=== PATIENT | female | born 1985 | race Caucasian/White ===

== ENCOUNTER 2017-05-01 18:16 | Emergency (ER) | payer OTHER ==
[2017-05-01 18:20] VITALS: BP 140/82; PULSE 65; RESP 20; TEMP 98.3
--- NOTE | 2017-05-01 19:00 | ED ---
Skin/Abscess/FB HPI - General Chief complaint: Skin/Abscess/Foreign Body Stated complaint: RASH, FEVER Time Seen by Provider: 05/01/17 18:51 Source: patient, RN notes reviewed Mode of arrival: ambulatory Limitations: no limitations - History of Present Illness Initial comments: Is a 31-year-old female presents emergency Department chief complaint rash. She states has been present for over one week. She states it slightly itchy in nature she's been trying Claritin and Benadryl with to help because it starts itching. Patient states the rash is not spreading and it's not improving at this time. Denies any recent sore throat or any known illnesses. Patient thought she felt warm today May had a fever no recorded temperature. Patient states she did use a new laundry detergent in the past which she thought it was but it's not going away. She's had problems with laundry soaps or past. She does have drug ALLERGY to sulfa. Patient offers no other associated symptoms. Denies difficulty breathing or difficulty swallowing - Related Data Previous Rx's Medication Instructions Recorded Albuterol Inhaler [Ventolin Hfa 1 - 2 puff INHALATION Q6HR PRN #2 11/06/15 Inhaler] puff Levofloxacin [Levaquin] 750 mg PO DAILY #10 tab 11/06/15 Allergies Allergy/AdvReac Type Severity Reaction Status Date / Time Sulfa (Sulfonamide Allergy Rash/Hives Verified 05/01/17 18:20 Antibiotics) Review of Systems ROS Statement: Those systems with pertinent positive or pertinent negative responses have been documented in the HPI. ROS Other: All systems not noted in ROS Statement are negative. Past Medical History Past Medical History: No Reported History History of Any Multi-Drug Resistant Organisms: None Reported Past Surgical History: No Surgical Hx Reported Past Psychological History: No Psychological Hx Reported Smoking Status: Current every day smoker Past Alcohol Use History: Occasional Past Drug Use History: None Reported General Exam Limitations: no limitations General appearance: alert, in no apparent distress Head exam: Present: atraumatic, normocephalic, normal inspection Eye exam: Present: normal appearance, PERRL, EOMI. Absent: scleral icterus, conjunctival injection, periorbital swelling ENT exam: Present: normal exam, normal oropharynx, mucous membranes moist, TM's normal bilaterally, normal external ear exam Neck exam: Present: normal inspection, full ROM. Absent: tenderness, meningismus, lymphadenopathy Respiratory exam: Present: normal lung sounds bilaterally. Absent: respiratory distress, wheezes, rales, rhonchi, stridor Cardiovascular Exam: Present: regular rate, normal rhythm, normal heart sounds. Absent: systolic murmur, diastolic murmur, rubs, gallop, clicks Skin exam: Present: warm, dry, intact, normal color, rash (Rash noted on the torso which is slightly scaly in nature, salmon-colored in various in size) Course Vital Signs 05/01/17 18:18 Temperature 98.3 F Pulse Rate 65 Respiratory 20 Rate Blood Pressure 140/82 O2 Sat by Pulse 99 Oximetry Medical Decision Making - Medical Decision Making 31-year-old female presented emergency from for rash. Patient has pityrisasis rosea. We did discuss that this is treated with antihistamines and a last several weeks and she should follow-up with her primary care physician for recheck return parameters were discussed. Disposition Clinical Impression: Pityriasis rosea Disposition: HOME SELF-CARE Condition: Stable Instructions: Pityriasis rosea (ED) Additional Instructions: Please return to the Emergency Department if symptoms worsen or any other concerns. Referrals: Ivan Chowdhury MD [Primary Care Provider] - 1-2 days Time of Disposition: 19:00
== END 2017-05-01 19:08 | disposition home or self-care (01) ==
LOC: EC 18:16
DX: L42 Pityriasis rosea (principal); F17.200 Nicotine dependence, unspecified, uncomplicated; Z88.2 Allergy status to sulfonamides
CPT/HCPCS: 99283

== ENCOUNTER 2018-01-22 10:46 | Emergency (ER) | payer OTHER ==
[2018-01-22 10:51] VITALS: TEMP 98
--- NOTE | 2018-01-22 11:11 | ED ---
General Adult HPI - General Chief complaint: Chest Pain Stated complaint: chest pain Source: patient Mode of arrival: ambulatory Limitations: no limitations - History of Present Illness Initial comments: Dictation was produced using [employer] dictation software. please excuse any grammatical, word or spelling errors. Chief Complaint: 32-year-old female with past medical history of pulmonary embolus presents with pleuritic chest pain. History of Present Illness: Since yesterday she has been experiencing pleuritic chest pain. Patient states she had a blood clot in the past. She completed anticoagulation therapy. Patient states that she does not know where the blood clot came from. She says she is not sure if she had a deep venous thrombosis. Patient denies any leg pain or leg swelling. Patient states her pain is to her right anterior chest worse with deep inspiration. She states the sharp in nature. Patient is complaining of some shortness of breath. The ROS documented in this emergency department record has been reviewed and confirmed by me. Those systems with pertinent positive or negative responses have been documented in the HPI. All other systems are other negative and/or noncontributory. - Related Data Home Medications Medication Instructions Recorded Confirmed diphenhydrAMINE HCL [Benadryl] 50 mg PO ONCE PRN 05/01/17 05/01/17 Allergies Allergy/AdvReac Type Severity Reaction Status Date / Time Sulfa (Sulfonamide Allergy Rash/Hives Verified 05/01/17 19:03 Antibiotics) Review of Systems ROS Statement: Those systems with pertinent positive or pertinent negative responses have been documented in the HPI. ROS Other: All systems not noted in ROS Statement are negative. Past Medical History Past Medical History: No Reported History History of Any Multi-Drug Resistant Organisms: None Reported Past Surgical History: No Surgical Hx Reported Past Psychological History: No Psychological Hx Reported Smoking Status: Current every day smoker Past Alcohol Use History: Occasional Past Drug Use History: None Reported General Exam - General Exam Comments Initial Comments: PHYSICAL EXAM: General Impression: Alert and oriented x3, not in acute distress HEENT: Normocephalic atraumatic, extra-ocular movements intact, pupils equal and reactive to light bilaterally, mucous membranes moist. Cardiovascular: Heart regular rate and rhythm, S1&S2 audible, no murmurs, rubs or gallops Chest: Lungs clear to auscultation bilaterally, no rhonchi, no wheeze, no rales Abdomen: Bowel sounds present, abdomen soft, non-tender, non-distended, no organomegaly Musculoskeletal: Pulses present and equal in all extremities, left lower extremity slightly larger than right lower extremity in girth Motor: Power 5/5 bilaterally, no focal deficits noted Neurological: CN II-XII grossly intact, no focal motor or sensory deficits noted Skin: Intact with no visualized rashes Psych: Normal affect and mood Limitations: no limitations Course Vital Signs 01/22/18 01/22/18 01/22/18 10:49 11:30 12:00 Temperature 98 F Pulse Rate 71 71 58 L Respiratory 18 17 18 Rate Blood Pressure 129/69 129/82 120/77 O2 Sat by Pulse 99 99 97 Oximetry 01/22/18 01/22/18 12:30 13:00 Temperature Pulse Rate 57 L 54 L Respiratory 17 16 Rate Blood Pressure 121/69 120/71 O2 Sat by Pulse 97 97 Oximetry Medical Decision Making - Medical Decision Making ED course: 32-year-old female past medical history of blood clots presents with pleuritic chest pain and shortness of breath 2 days. Vital signs upon arrival are within acceptable limits. Given that patient has history of blood clots and clinical presentation is concerning for pulmonary embolus plan is to work patient with blood work and d-dimer. Patient is not tachycardic and not hypoxic. There is low to moderate suspicion of blood clot at this time.Laboratory evaluation obtained. CBC, metabolic panel is unremarkable. Cardiac enzymes are negative. D-dimer is slightly elevated to 0.56. Coag panel is negative. X-ray shows no acute processes. CT angios obtained showing no signs to suggest pulmonary embolus or any other pulmonary process. Patient be discharged. Patient's symptoms likely secondary to muscular skeletal strain. Patient be discharged. Told to follow-up with primary care physician. EKG interpretation: Ventricular rate 59, sinus bradycardia,. Interval 132, care is 86, QTC 43. No ID prolongation, no QTC prolongation, no ST or T-wave changes noted. Overall, this EKG is unremarkable - Lab Data Result diagrams: 01/22/18 11:30 01/22/18 11:30 Lab Results 01/22/18 01/22/18 01/22/18 Range/Units 11:30 11:30 11:30 WBC 5.7 (3.8-10.6) k/uL RBC 4.17 (3.80-5.40) m/uL Hgb 13.0 (11.4-16.0) gm/dL Hct 38.1 (34.0-46.0) % MCV 91.3 (80.0-100.0) fL MCH 31.1 (25.0-35.0) pg MCHC 34.0 (31.0-37.0) g/dL RDW 12.6 (11.5-15.5) % Plt Count 154 (150-450) k/uL Neutrophils % 62 % Lymphocytes % 27 % Monocytes % 6 % Eosinophils % 3 % Basophils % 1 % Neutrophils # 3.5 (1.3-7.7) k/uL Lymphocytes # 1.5 (1.0-4.8) k/uL Monocytes # 0.3 (0-1.0) k/uL Eosinophils # 0.2 (0-0.7) k/uL Basophils # 0.0 (0-0.2) k/uL PT (9.0-12.0) sec INR (<1.2) APTT (22.0-30.0) sec D-Dimer (<0.60) mg/L FEU Sodium 141 (137-145) mmol/L Potassium 4.3 (3.5-5.1) mmol/L Chloride 110 H (98-107) mmol/L Carbon Dioxide 24 (22-30) mmol/L Anion Gap 7 mmol/L BUN 10 (7-17) mg/dL Creatinine 0.67 (0.52-1.04) mg/dL Est GFR (CKD-EPI)AfAm >90 (>60 ml/min/1.73 sqM) Est GFR (CKD-EPI)NonAf >90 (>60 ml/min/1.73 sqM) Glucose 92 (74-99) mg/dL Calcium 9.6 (8.4-10.2) mg/dL Magnesium 2.0 (1.6-2.3) mg/dL Total Bilirubin 0.3 (0.2-1.3) mg/dL AST 29 (14-36) U/L ALT 45 (9-52) U/L Alkaline Phosphatase 44 (38-126) U/L Total Creatine Kinase 74 (30-135) U/L CK-MB (CK-2) 0.4 (0.0-2.4) ng/mL CK-MB (CK-2) Rel Index 0.5 Troponin I <0.012 (0.000-0.034) ng/mL Total Protein 6.8 (6.3-8.2) g/dL Albumin 4.0 (3.5-5.0) g/dL 01/22/ Range/Units 11:30 WBC (3.8-10.6) k/uL RBC (3.80-5.40) m/uL Hgb (11.4-16.0) gm/dL Hct (34.0-46.0) % MCV (80.0-100.0) fL MCH (25.0-35.0) pg MCHC (31.0-37.0) g/dL RDW (11.5-15.5) % Plt Count (150-450) k/uL Neutrophils % % Lymphocytes % % Monocytes % % Eosinophils % % Basophils % % Neutrophils # (1.3-7.7) k/uL Lymphocytes # (1.0-4.8) k/uL Monocytes # (0-1.0) k/uL Eosinophils # (0-0.7) k/uL Basophils # (0-0.2) k/uL PT 10.1 (9.0-12.0) sec INR 1.0 (<1.2) APTT 24.8 (22.0-30.0) sec D-Dimer 0.56 (<0.60) mg/L FEU Sodium (137-145) mmol/L Potassium (3.5-5.1) mmol/L Chloride (98-107) mmol/L Carbon Dioxide (22-30) mmol/L Anion Gap mmol/L BUN (7-17) mg/dL Creatinine (0.52-1.04) mg/dL Est GFR (CKD-EPI)AfAm (>60 ml/min/1.73 sqM) Est GFR (CKD-EPI)NonAf (>60 ml/min/1.73 sqM) Glucose (74-99) mg/dL Calcium (8.4-10.2) mg/dL Magnesium (1.6-2.3) mg/dL Total Bilirubin (0.2-1.3) mg/dL AST (14-36) U/L ALT (9-52) U/L Alkaline Phosphatase (38-126) U/L Total Creatine Kinase (30-135) U/L CK-MB (CK-2) (0.0-2.4) ng/mL CK-MB (CK-2) Rel Index Troponin I (0.000-0.034) ng/mL Total Protein (6.3-8.2) g/dL Albumin (3.5-5.0) g/dL Disposition Clinical Impression: Chest pain Disposition: HOME SELF-CARE Condition: Good Instructions: Chest Pain (ED) Is patient prescribed a controlled substance at d/c from ED?: No Referrals: Ivan Chowdhury MD [Primary Care Provider] - 1-2 days Time of Disposition: 14:07
[2018-01-22 12:07] LABS: Basophils % (A) 1 %; Eosinophils # (A) 0.2 k/uL (0-0.7); Eosinophils % (A) 3 %; HCT 38.1 % (34.0-46.0); Lymphocytes # (A) 1.5 k/uL (1.0-4.8); Lymphocytes % (A) 27 %; MCH 31.1 pg (25.0-35.0); MCV 91.3 fL (80.0-100.0); Mean Platelet Volume 8.7; Monocytes # (A) 0.3 k/uL (0-1.0); Monocytes % (A) 6 %; Neutrophils # (A) 3.5 k/uL (1.3-7.7); Neutrophils % (A) 62 %; Platelet Count 154 k/uL (150-450); RBC 4.17 m/uL (3.80-5.40); RDW 12.6 % (11.5-15.5); WBC 5.7 k/uL (3.8-10.6)
--- NOTE | 2018-01-22 12:12 | XR ---
EXAMINATION TYPE: XR chest 2V DATE OF EXAM: 01/22/2018 COMPARISON: Chest x-ray January 02, 2016. HISTORY: Right-sided chest pain and shortness of breath for one day. TECHNIQUE: Frontal and lateral views of the chest are obtained. FINDINGS: There is no focal air space opacity, pleural effusion, or pneumothorax seen. The cardiac silhouette size is within normal limits. The osseous structures are intact. IMPRESSION: No acute cardiopulmonary process currently.
[2018-01-22 12:18] LABS: ALT 45 U/L (9-52); AST 29 U/L (14-36); Alkaline Phosphatase 44 U/L (38-126); Anion Gap 7 mmol/L; Blood Urea Nitrogen 10 mg/dL (7-17); Calcium 9.6 mg/dL (8.4-10.2); Carbon Dioxide 24 mmol/L (22-30); Chloride 110 mmol/L (98-107); Glucose 92 mg/dL (74-99); Potassium 4.3 mmol/L (3.5-5.1); Sodium 141 mmol/L (137-145); Total Bilirubin 0.3 mg/dL (0.2-1.3); Total Protein 6.8 g/dL (6.3-8.2)
[2018-01-22 12:42] LABS: Creatine Kinase 74 U/L (30-135)
[2018-01-22 12:52] LABS: D-Dimer 0.56 mg/L FEU (<0.60); Partial Thromboplastin Time 24.8 sec (22.0-30.0); Prothrombin Time 10.1 sec (9.0-12.0)
[2018-01-22 12:55] LABS: Creatine Kinase MB 0.4 ng/mL (0.0-2.4); Troponin I <0.012 ng/mL (0.000-0.034)
[2018-01-22 13:46] VITALS: RESP 16
--- NOTE | 2018-01-22 13:56 | CT ---
EXAMINATION TYPE: CT angio chest DATE OF EXAM: 01/22/2018 COMPARISON: Chest x-ray earlier today. HISTORY: Right sided chest pain rule out pulmonary embolism CT DLP: 395.2 mGycm. Automated Exposure Control for Dose Reduction was Utilized. CONTRAST: CTA scan of the thorax is performed with IV Contrast, patient injected with 100 mL of Isovue 370, pul monary embolism protocol. MIP Images are created on CT scanner and reviewed. FINDINGS: LUNGS: Some patchy dependent atelectasis in the left lower lobe is present otherwise lungs are grossl y clear. No suspicious nodules or masses are present bilaterally There is no pleural effusion or pneu mothorax seen. The tracheobronchial tree is patent. MEDIASTINUM: There is satisfactory enhancement of the pulmonary artery and its branches, there is no CT evidence for pulmonary embolism. There are no greater than 1 cm hilar or mediastinal lymph nodes. No cardiomegaly or pericardial effusion is seen. OTHER: Focal calcification right hepatic lobe axial image 149 is incidentally noted. IMPRESSION: No CT evidence for acute pulmonary embolism. No suspicious acute pulmonary process.
[2018-01-22 14:26] VITALS: BP 117/67; PULSE 72
== END 2018-01-22 14:25 | disposition home or self-care (01) ==
LOC: EC 10:46
DX: R07.81 Pleurodynia (principal); R79.1 Abnormal coagulation profile; R00.1 Bradycardia, unspecified; M21.751 Unequal limb length (acquired), right femur; M21.761 Unequal limb length (acquired), right tibia; R06.02 Shortness of breath; F17.200 Nicotine dependence, unspecified, uncomplicated; Z88.2 Allergy status to sulfonamides; Z86.711 Personal history of pulmonary embolism; Z86.2 Personal history of diseases of the blood and blood-forming organs and certain disorders involving the immune mechanism
CPT/HCPCS: 36415; 93005; 85379; 80053; 82550; 82553; 83735; 84484; 85025; 85610; 85730; 71046; 71275; 99285; Q9967

== ENCOUNTER 2021-08-13 10:07 | Emergency (ER) | payer OTHER ==
[2021-08-13 10:16] VITALS: RESP 16; TEMP 98.3
[2021-08-13] MEDS ORDERED: SODIUM CHLORIDE 0.9% 1,000 ML IV STA (10:55)
--- NOTE | 2021-08-13 10:58 | ED ---
Female Urogenital HPI - General Chief complaint: Vaginal Bleeding Stated complaint: Abd pain(10 1/2 weeks preg) Time Seen by Provider: 08/13/21 10:46 Source: patient, RN notes reviewed Mode of arrival: ambulatory Limitations: no limitations - History of Present Illness Initial comments: This is a 36-year-old female who is 10-1/2 weeks and presents to the emergency department for vaginal bleeding and cramping. Patient states that this began this morning. Denies passing any tissue or clots. States that this is light bleeding she notices when she wipes. She also has associated pelvic cramping, but has not taken anything for the pain. She does note that she feels very tired and "out of it". Denies any associated nausea or vomiting. She did have an ultrasound two weeks ago at [facility]. She has been waiting to get into [facility] but has yet to get an appointment. Denies any fevers, chills, sore throat, cough, dyspnea, chest pain, palpitations, nausea, vomiting, diarrhea, back pain, or headaches. MD Complaint: vaginal bleeding, pelvic pain Patient : Yes Number of weeks : 10 - Related Data Home Medications Medication Instructions Recorded Confirmed Albuterol Sulfate [Proair Hfa] 2 puff INHALATION RT-QID PRN 08/13/21 08/13/21 Allergies Allergy/AdvReac Type Severity Reaction Status Date / Time Sulfa (Sulfonamide Allergy Rash/Hives Verified 08/13/21 13:20 Antibiotics) Review of Systems ROS Statement: Those systems with pertinent positive or pertinent negative responses have been documented in the HPI. ROS Other: All systems not noted in ROS Statement are negative. Past Medical History Past Medical History: No Reported History History of Any Multi-Drug Resistant Organisms: None Reported Past Surgical History: No Surgical Hx Reported Past Psychological History: No Psychological Hx Reported Smoking Status: Former smoker Past Alcohol Use History: Occasional Past Drug Use History: None Reported General Exam Limitations: no limitations General appearance: alert, in no apparent distress Head exam: Present: atraumatic, normocephalic, normal inspection Respiratory exam: Present: normal lung sounds bilaterally. Absent: respiratory distress, wheezes, rales, rhonchi, stridor Cardiovascular Exam: Present: regular rate, normal rhythm, normal heart sounds. Absent: systolic murmur, diastolic murmur, rubs, gallop, clicks Neurological exam: Present: alert, oriented X3, CN II-XII intact Psychiatric exam: Present: normal affect, normal mood Skin exam: Present: warm, dry, intact, normal color. Absent: rash Course Vital Signs 08/13/21 08/13/21 10:12 13:06 Temperature 98.3 F Pulse Rate 75 68 Respiratory 16 16 Rate Blood Pressure 131/84 120/66 O2 Sat by Pulse 96 100 Oximetry Medical Decision Making - Medical Decision Making This is a 36-year-old female who presents to the emergency department for vaginal bleeding. Ultrasound reveals a live intrauterine with a subchorionic hematoma. Patient is Rh+ and no RhoGAM is indicated. Urinalysis also reveals no signs of asymptomatic bacteriuria. Information for [facility] placed on the patient's discharge forms. She is advised to contact them regarding today's visit and see if she can get a sooner appointment than she can at [facility]. Return precautions reviewed in depth, the patient is instructed to return to the emergency department with any new, worsening, or concerning symptoms. Patient verbalized understanding. This case was discussed in detail with the attending ED physician. Presentation, findings, and treatment plan discussed in detail as well. - Lab Data Result diagrams: 08/13/21 11:37 08/13/21 11:37 Lab Results 08/13/21 08/13/21 08/13/21 Range/Units 11:37 11:37 11:37 WBC 7.1 (3.8-10.6) k/uL RBC 3.99 (3.80-5.40) m/uL Hgb 12.6 (11.4-16.0) gm/dL Hct 36.2 (34.0-46.0) % MCV 90.7 (80.0-100.0) fL MCH 31.5 (25.0-35.0) pg MCHC 34.7 (31.0-37.0) g/dL RDW 12.9 (11.5-15.5) % Plt Count 193 (150-450) k/uL MPV 8.8 Neutrophils % 68 % Lymphocytes % 24 % Monocytes % 4 % Eosinophils % 2 % Basophils % 1 % Neutrophils # 4.8 (1.3-7.7) k/uL Lymphocytes # 1.7 (1.0-4.8) k/uL Monocytes # 0.3 (0-1.0) k/uL Eosinophils # 0.2 (0-0.7) k/uL Basophils # 0.0 (0-0.2) k/uL Sodium 135 L (137-145) mmol/L Potassium 3.9 (3.5-5.1) mmol/L Chloride 106 (98-107) mmol/L Carbon Dioxide 22 (22-30) mmol/L Anion Gap 7 mmol/L BUN 6 L (7-17) mg/dL Creatinine 0.62 (0.52-1.04) mg/dL Est GFR (CKD-EPI)AfAm >90 (>60 ml/min/1.73 sqM) Est GFR (CKD-EPI)NonAf >90 (>60 ml/min/1.73 sqM) Glucose 79 (74-99) mg/dL Calcium 8.9 (8.4-10.2) mg/dL Total Bilirubin 0.3 (0.2-1.3) mg/dL AST 27 (14-36) U/L ALT 29 (4-34) U/L Alkaline Phosphatase 59 (38-126) U/L Total Protein 6.5 (6.3-8.2) g/dL Albumin 3.9 (3.5-5.0) g/dL HCG, Quant 80257.4 mIU/mL Urine Color Yellow Urine Appearance Clear (Clear) Urine pH 6.5 (5.0-8.0) Ur Specific Hugo 1.008 (1.001-1.035) Urine Protein Negative (Negative) Urine Glucose (UA) Negative (Negative) Urine Ketones Negative (Negative) Urine Blood Small H (Negative) Urine Nitrite Negative (Negative) Urine Bilirubin Negative (Negative) Urine Urobilinogen <2.0 (<2.0) mg/dL Ur Leukocyte Esterase Negative (Negative) Urine WBC 1 (0-5) /hpf Ur Squamous Epith Cells 1 (0-4) /hpf Urine Mucus Rare H (None) /hpf Blood Type Blood Type Recheck Bld Type Recheck Status 08/13/21 Range/Units 11:37 WBC (3.8-10.6) k/uL RBC (3.80-5.40) m/uL Hgb (11.4-16.0) gm/dL Hct (34.0-46.0) % MCV (80.0-100.0) fL MCH (25.0-35.0) pg MCHC (31.0-37.0) g/dL RDW (11.5-15.5) % Plt Count (150-450) k/uL MPV Neutrophils % % Lymphocytes % % Monocytes % % Eosinophils % % Basophils % % Neutrophils # (1.3-7.7) k/uL Lymphocytes # (1.0-4.8) k/uL Monocytes # (0-1.0) k/uL Eosinophils # (0-0.7) k/uL Basophils # (0-0.2) k/uL Sodium (137-145) mmol/L Potassium (3.5-5.1) mmol/L Chloride (98-107) mmol/L Carbon Dioxide (22-30) mmol/L Anion Gap mmol/L BUN (7-17) mg/dL Creatinine (0.52-1.04) mg/dL Est GFR (CKD-EPI)AfAm (>60 ml/min/1.73 sqM) Est GFR (CKD-EPI)NonAf (>60 ml/min/1.73 sqM) Glucose (74-99) mg/dL Calcium (8.4-10.2) mg/dL Total Bilirubin (0.2-1.3) mg/dL AST (14-36) U/L ALT (4-34) U/L Alkaline Phosphatase (38-126) U/L Total Protein (6.3-8.2) g/dL Albumin (3.5-5.0) g/dL HCG, Quant mIU/mL Urine Color Urine Appearance (Clear) Urine pH (5.0-8.0) Ur Specific Hugo (1.001-1.035) Urine Protein (Negative) Urine Glucose (UA) (Negative) Urine Ketones (Negative) Urine Blood (Negative) Urine Nitrite (Negative) Urine Bilirubin (Negative) Urine Urobilinogen (<2.0) mg/dL Ur Leukocyte Esterase (Negative) Urine WBC (0-5) /hpf Ur Squamous Epith Cells (0-4) /hpf Urine Mucus (None) /hpf Blood Type A Positive Blood Type Recheck No Previous Record Bld Type Recheck Status [facility] ONLY - Radiology Data Radiology results: report reviewed, image reviewed Disposition Clinical Impression: Subchorionic hematoma in first trimester Disposition: HOME SELF-CARE Instructions (If sedation given, give patient instructions): Subchorionic Hemorrhage (ED) Additional Instructions: Return to the emergency department with any new, worsening, or concerning symptoms. Information for [facility] listed on your discharge forms. Contact them regarding your recent ER visit and diagnosis of a subchorionic hematoma, and see if they are able to see you any sooner than [facility] for an appointment. Is patient prescribed a controlled substance at d/c from ED?: No Referrals: Mino Vera MD [Primary Care Provider] - 1-2 days Lanette Brandt DO [Doctor of Osteopathic Medicine] - 1-2 days
--- NOTE | 2021-08-13 11:41 | US ---
EXAMINATION TYPE: Transabdominal DATE OF EXAM: 08/13/2021 11:29 AM COMPARISON: NONE CLINICAL HISTORY: Bleeding and pelvic pain, 10 weeks . Spotting and pelvic cramping. EXAM PERFORMED: Transabdominal (TA) EXAM MEASUREMENTS: GESTATIONAL AGE / DATING Physician Established: (10 weeks/5 days) EDC: 03/06/2022 Dates by LMP: LMP unknown Dates by First Scan: No previous this is first scan Dates by Current Scan for: (11 weeks/0 days) EDC: 03/04/2022 MATERNAL ANATOMY Uterus: 11.4 x 7.7 x 8.9cm Right Ovary: 3.4 x 3.0 x 2.4cm Left Ovary: 3.1 x 1.7 x 1.5cm Post CDS / Adnexa: wnl Presence of free fluid: no Presence of corpus luteal cyst: right ovary: 2.3 x 1.9 x 1.4cm Presence of subchorionic bleed: superior to gestational sac - 2.5 x 0.9 x 3.7cm GESTATION / SURVEY CRL: 4.1cm (11 weeks/0 days) Yolk Sac (normal less than 6mm): not seen Heart Rate: 151 bpm Rhythm: Normal IUP: Viable IUP Date of LMP: Unknown Beta HcG (if available): Not available at time of exam Single live intrauterine gestation is confirmed as the gestational sac and pole are present. Yo lk sac not clearly identified. No free fluid in the pelvic cul-de-sac. There is small adjacent curvil inear 2.5 x 0.9 x 3.7 cm fluid collection suspicious for subchorionic hemorrhage adjacent to the feta l pole. Both ovaries identified. No suspicious extra ovarian lesion. There is 2.3 cm corpus luteal cyst on th e right noted. IMPRESSION: Single live intrauterine gestation is confirmed. Mean crown-rump length 4.1 cm correspond ing to 11 weeks 0 day old fetus.
[2021-08-13 11:53] LABS: Basophils % (A) 1 %; Eosinophils # (A) 0.2 k/uL (0-0.7); Eosinophils % (A) 2 %; HCT 36.2 % (34.0-46.0); HGB 12.6 gm/dL (11.4-16.0); Lymphocytes # (A) 1.7 k/uL (1.0-4.8); Lymphocytes % (A) 24 %; MCH 31.5 pg (25.0-35.0); MCHC 34.7 g/dL (31.0-37.0); MCV 90.7 fL (80.0-100.0); Mean Platelet Volume 8.8; Monocytes # (A) 0.3 k/uL (0-1.0); Monocytes % (A) 4 %; Neutrophils # (A) 4.8 k/uL (1.3-7.7); Neutrophils % (A) 68 %; Platelet Count 193 k/uL (150-450); RBC 3.99 m/uL (3.80-5.40); RDW 12.9 % (11.5-15.5); WBC 7.1 k/uL (3.8-10.6)
[2021-08-13 12:00] LABS: Appearance,Urine Clear (Clear); Bilirubin,Urine Negative (Negative); Blood,Urine Small (Negative); Color,Urine Yellow; Glucose,Urine (UA) Negative (Negative); Ketones,Urine Negative (Negative); Leukocyte Esterase,Urine Negative (Negative); Mucus,Urine Rare /hpf; Nitrite,Urine Negative (Negative); PH, Urine 6.5 (5.0-8.0); Protein,Urine Negative (Negative); Specific Gravity,Urine 1.008 (1.001-1.035); Squamous Epithelial Cell,Urine 1 /hpf (0-4); Urobilinogen,Urine <2.0 mg/dL (<2.0); WBC,Urine 1 /hpf (0-5)
[2021-08-13 12:09] LABS: ALT 29 U/L (4-34); AST 27 U/L (14-36); African American GFR (CKD) >90 (>60 ml/min/1.73 sqM); Albumin 3.9 g/dL (3.5-5.0); Alkaline Phosphatase 59 U/L (38-126); Anion Gap 7 mmol/L; Blood Urea Nitrogen 6 mg/dL (7-17); Calcium 8.9 mg/dL (8.4-10.2); Carbon Dioxide 22 mmol/L (22-30); Chloride 106 mmol/L (98-107); Glucose 79 mg/dL (74-99); Non-African American GFR(CKD) >90 (>60 ml/min/1.73 sqM); Potassium 3.9 mmol/L (3.5-5.1); Sodium 135 mmol/L (137-145); Total Bilirubin 0.3 mg/dL (0.2-1.3); Total Protein 6.5 g/dL (6.3-8.2)
[2021-08-13 12:56] LABS: HCG,Quantitative Serum 51380.4 mIU/mL
[2021-08-13 13:07] VITALS: BP 120/66; PULSE 68
== END 2021-08-13 13:07 | disposition home or self-care (01) ==
LOC: EC 10:07
DX: O20.8 Other hemorrhage in early pregnancy (principal); Z88.2 Allergy status to sulfonamides; Z87.891 Personal history of nicotine dependence; Z3A.10 10 weeks gestation of pregnancy
CPT/HCPCS: 36415; 76801; 80053; 81001; 84702; 85025; 86900; 86901; 96360; 99284

== ENCOUNTER 2022-02-04 09:39 | Outpatient (CLI) | payer OTHER ==
[2022-02-04 15:04] VITALS: BP 127/64; PULSE 77; RESP 14; TEMP 97.1
--- NOTE | 2022-03-22 10:16 | P.MSEPDOC ---
Presenting Problems - Arrival Data Date of Arrival on Unit: 02/04/22 Time of Arrival on Unit: 09:39 Mode of Transport: Ambulatory - Complaint OB-Reason for Admission/Chief Complaint: Possible Onset of Labor Comment: contractions since 729, possible rom 629 Medical History - Information : 6 Para: 4 Term: 3 : 1 Abortions: Spontaneous or Elective: 1 Number of Living Children: 4 - Gestational Age Gestational Age by STEPHANIE (wks/days): 36 Weeks and 0 Days - History Complications: Smoker Review of Systems - Review of Systems Constitutional: No problems Breast: No problems ENT: No problems Cardiovascular: No problems Respiratory: No problems Gastrointestinal: No problems Genitourinary: No problems Musculoskeletal: No problems Neurological: No problems Skin: No problems Vital Signs - Temperature Temperature: 97.1 F Temperature Source: Temporal Artery Scan - Pulse Brachial Pulse Rate: 77 Pulse Assessment Method: Automatic Cuff - Respirations Respiratory Rate: 14 Oxygen Delivery Method: Room Air O2 Sat by Pulse Oximetry: 98 - Blood Pressure Right Arm Blood Pressure: 127/64 Blood Pressure Mean: 85 Blood Pressure Source: Automatic Cuff Medical Screen Scoring - Cervical Exam Dilation (cm): 0 Effacement (%): 0 Station: -3 Membranes: Intact - Uterine Contractions Frequency From (mins): 3 Frequency To (mins): 3 Duration From (seconds): 50 Duration To (seconds): 60 Intensity: Mild Resting: Soft to palpation - Assessment - Baby A Baseline FHR: 125 Heart Rate - NICHD Category: Category I (Normal) NST: Reactive Physician Notification - Physician Notified Physician Notified Date: 02/04/22 Physician Notified Time: 11:06 Physician: Delmy Barrios Order Received: (discharge with instruction) Maternal Triage Index - Prompt/Priority 3 Prompt Priority 3: Yes Criteria Met for Priority 3: 36 weeks rule out labor and rom Disposition - Disposition OB Disposition: Triage, Discharge to home, Written follow up instructions reviewed Discharge Date: 02/04/22 Discharge Time: 11:10 I agree with the RN Medical Screening Exam: Yes Physician's MSE Comment: I have neither seen nor examined the patient Case reviewed; plan agreed upon as documented in EMR&OBIX.: Yes Diagnosis: RELATED CONDITIONS, UNSPECIFIED, THIRD TRIMESTER
== END 2022-02-04 11:10 | disposition home or self-care (01) ==
LOC: FBPOP 09:39
PROVIDERS: ATTEND Obstetrics & Gynecology
DX: O99.333 Smoking (tobacco) complicating pregnancy, third trimester (principal); Z3A.36 36 weeks gestation of pregnancy; Z88.2 Allergy status to sulfonamides; F17.200 Nicotine dependence, unspecified, uncomplicated
CPT/HCPCS: 59025; 84112; G0463; 99213

== ENCOUNTER 2022-02-14 06:00 | Inpatient (IN) | payer OTHER ==
[2022-02-14] MEDS ORDERED: TERBUTALINE 1 MG/ML VIAL SQ PRN (06:19)
[2022-02-14] MEDS ORDERED: LIDOCAINE 0.5% (PF) 5 MG/ML (50 ML SDV) SQ PRN (06:19)
[2022-02-14] MEDS ORDERED: OXYTOCIN 30 UNITS/500 ML NS 30 UNIT in SALINE 1 500ML.BAG IV SCH ×2 (06:30→17:30)
[2022-02-14] MEDS ORDERED: PENICILLIN G POTASSIUM 5,000,000 UNIT in DEXTROSE 5% IN WATER 100 ML IVPB STA ×2 (06:33)
[2022-02-14] MEDS: LACTATED RINGERS 1,000 ML IV SCH ×2 (06:46→14:45)
[2022-02-14 06:52] LABS: Basophils % (A) 0 %; Eosinophils # (A) 0.2 k/uL (0-0.7); Eosinophils % (A) 2 %; HCT 31.8 % (34.0-46.0); HGB 11.5 gm/dL (11.4-16.0); Lymphocytes % (A) 22 %; MCH 31.4 pg (25.0-35.0); MCHC 36.2 g/dL (31.0-37.0); MCV 86.6 fL (80.0-100.0); Mean Platelet Volume 9.8; Monocytes # (A) 0.3 k/uL (0-1.0); Monocytes % (A) 4 %; Neutrophils # (A) 6.5 k/uL (1.3-7.7); Neutrophils % (A) 70 %; Platelet Count 169 k/uL (150-450); RBC 3.67 m/uL (3.80-5.40); RDW 12.7 % (11.5-15.5); WBC 9.3 k/uL (3.8-10.6)
--- NOTE | 2022-02-14 08:36 | P.HPOB ---
History of Present Illness H&P Date: 02/14/22 Chief Complaint: Medical induction of labor Ms. Huntley is a 36 year old at 37 weeks and 3 days with EDC of 03/04/2021 who presents to labor and delivery for medical induction of labor for preeclampsia without severe features and IUGR 4%ile with normal cord dopplers. is also complicated by advanced maternal age and obesity. Her past obstetric history is significant for 3 full term vaginal deliveries without complications and 1 vaginal delivery at 34 weeks secondary to PPROM. She had 1 SAB. Her last vaginal delivery was 13 years ago and her largest baby weighed 8 pounds and 14 ounces. Laboratory workup during shows blood type of A positive, antibody screen negative, Rubella immune, VDRL non-reactive, HBsAg negative, HIV negative, GBS unknown (still pending). Recent office urine dip yielded +4 of protein, which was followed by a urine protein to creatinine ration that was >1.7 Past Medical History Past Medical History: No Reported History History of Any Multi-Drug Resistant Organisms: None Reported Past Surgical History: No Surgical Hx Reported Past Anesthesia/Blood Transfusion Reactions: No Reported Reaction Past Psychological History: No Psychological Hx Reported Smoking Status: Current every day smoker Past Alcohol Use History: None Reported Past Drug Use History: None Reported Medications and Allergies Home Medications Medication Instructions Recorded Confirmed Type Albuterol Sulfate [Proair Hfa] 2 puff INHALATION RT-QID PRN 08/13/21 08/13/21 History Aspirin [Vazalore] 81 mg PO DAILY 02/14/22 02/14/22 History Vit No.179/Iron/Folic PO DAILY 02/14/22 History [ Tablet] Allergies Allergy/AdvReac Type Severity Reaction Status Date / Time Sulfa (Sulfonamide Allergy Rash/Hives Verified 08/13/21 13:20 Antibiotics) Exam Vital Signs Temp Pulse Resp BP Pulse Ox 02/14/22 06:15 96.6 F L 80 16 118/70 93 L Intake and Output 02/13/22 02/14/22 02/14/22 22:59 06:59 14:59 Other: Weight 107.048 kg Focused physical exam is performed. This is a pleasant in no apparent distress. Cervical exam is 1 centimeter dilation, 50% effacement, and -3 station. [employer] catheter is placed at this time with 60cc in each balloon. Results Result Diagrams: 02/14/22 06:19 Abnormal Lab Results - Last 24 Hours (Table) 02/14/22 Range/Units 06:19 RBC 3.67 L (3.80-5.40) m/uL Hct 31.8 L (34.0-46.0) % Assessment and Plan Assessment: 36 y/o at 37 weeks and 3 days who presents to L&D for mIOL for pre- eclmapsia without severe features and IUGR 4%ile with normal cord dopplers. Plan: - Admit, NPO, mIVF, low dose oxytocin with maximum of 6 until cooks catheter is removed in 8-12 hours. Continuous EFM. IV stadol or nitrous oxide prn. Time with Patient: Greater than 30
[2022-02-14 09:42] LABS: ALT 47 U/L (4-34); AST 34 U/L (14-36); African American GFR (CKD) >90 (>60 ml/min/1.73 sqM); Alkaline Phosphatase 113 U/L (38-126); Anion Gap 4 mmol/L; Blood Urea Nitrogen 3 mg/dL (7-17); Calcium 8.3 mg/dL (8.4-10.2); Carbon Dioxide 23 mmol/L (22-30); Chloride 109 mmol/L (98-107); Glucose 80 mg/dL (74-99); Non-African American GFR(CKD) >90 (>60 ml/min/1.73 sqM); Sodium 136 mmol/L (137-145); Total Bilirubin 0.4 mg/dL (0.2-1.3); Total Protein 5.5 g/dL (6.3-8.2); Uric Acid 5.8 mg/dL (3.7-7.4)
[2022-02-14] MEDS: PENICILLIN G POTASSIUM 2,500,000 UNIT in DEXTROSE 5% IN WATER 100 ML IVPB SCH ×6 (10:45→19:21)
[2022-02-14] MEDS ORDERED: BUTORPHANOL 1 MG/ML 1 ML VIAL IV PRN (11:30)
[2022-02-14] MEDS ORDERED: fentaNYL (PF) 50 MCG/ML 5 ML AMP ONE (14:37)
[2022-02-14] MEDS ORDERED: ROPIVACAINE 5 MG/ML 20 ML AMPULE ONE (14:37)
[2022-02-14] MEDS ORDERED: SODIUM CHLORIDE 0.9% 100 ML BAG ONE (14:37)
[2022-02-14] MEDS ORDERED: HYDROcodone/APAP 5-325MG 1 EACH TAB PO PRN (17:30)
[2022-02-14] MEDS ORDERED: BENZOCAINE/MENTHOL SPRAY 1 GM/SPRAY AEROSOL TOPICAL PRN (17:30)
[2022-02-14] MEDS ORDERED: ZOLPIDEM 5 MG TAB PO PRN (17:30)
[2022-02-14] MEDS ORDERED: diphenhydrAMINE 25 MG CAP PO PRN (17:30)
[2022-02-14] MEDS ORDERED: diphenhydrAMINE 50 MG CAP PO PRN (17:30)
[2022-02-14] MEDS ORDERED: diphenhydrAMINE 50 MG/ML 1 ML VIAL IVP PRN ×2 (17:30)
[2022-02-14] MEDS ORDERED: HYDROCORTISONE 2.5% RECTAL CREAM 30 GM TUBE RECTAL PRN (17:30)
[2022-02-14] MEDS ORDERED: ACETAMINOPHEN TAB 325 MG TAB PO PRN (17:30)
[2022-02-14] MEDS ORDERED: SIMETHICONE 80 MG CHEWABLE PO PRN (17:30)
[2022-02-14] MEDS ORDERED: LANOLIN CREAM 5 GM TUBE TOPICAL PRN (17:30)
--- NOTE | 2022-02-14 17:37 | P.PROBDLV ---
Vaginal Delivery Note - . Vaginal Delivery Note: DATE OF SERVICE: 02/14/2022 PROCEDURE: Normal Vaginal Delivery ATTENDING: Dr. Delmy Barrios MD ESTIMATED BLOOD LOSS: 50 mL FINDINGS: VFI, Apgars 11/07 PROCEDURE: Patient was a 36 y/o who presented to labor and delivery for medical induction of labor for pre-eclampsia without severe features and intrauterine growth restriction in the 7%ile. A cooks catheter was placed without difficulty and oxytocin was started. After the cooks catheter was removed artificial rupture of membranes was undertaken at 1355 for clear fluid. The patient progressed to complete dilation at 1703. She pushed the head very effectively. Head delivered without difficulty followed by shoulders and body over intact perineum at 1715. Infant placed on maternal abdomen and bulb suctioned. Cord was clamped and cut after a 30 second delay. Placenta delivered whole with gentle cord traction at 1717. Oxytocin was started to facilitate uterine tone. Uterine fundus firm and bleeding minimal upon fundal massage. Perineal inspection revealed an intact perineum. Patient stable .
[2022-02-14] MEDS: IBUPROFEN 600 MG TAB PO PRN (19:22)
[2022-02-14] MEDS: SENNOSIDES-DOCUSATE SODIUM 1 EACH TAB PO SCH (19:22)
[2022-02-15] MEDS: IBUPROFEN 600 MG TAB PO PRN ×2 (06:14→11:29)
[2022-02-15 07:15] LABS: Basophils # (A) 0.1 k/uL (0-0.2); Basophils % (A) 1 %; Eosinophils # (A) 0.1 k/uL (0-0.7); Eosinophils % (A) 1 %; HCT 30.6 % (34.0-46.0); HGB 10.9 gm/dL (11.4-16.0); Lymphocytes # (A) 1.8 k/uL (1.0-4.8); Lymphocytes % (A) 20 %; MCH 31.3 pg (25.0-35.0); MCHC 35.6 g/dL (31.0-37.0); MCV 87.9 fL (80.0-100.0); Monocytes # (A) 0.3 k/uL (0-1.0); Monocytes % (A) 4 %; Neutrophils # (A) 6.7 k/uL (1.3-7.7); Neutrophils % (A) 74 %; Platelet Count 154 k/uL (150-450); RBC 3.48 m/uL (3.80-5.40); RDW 12.6 % (11.5-15.5); WBC 9.1 k/uL (3.8-10.6)
[2022-02-15] MEDS: SENNOSIDES-DOCUSATE SODIUM 1 EACH TAB PO SCH ×2 (09:00→20:08)
[2022-02-15] MEDS: LACTATED RINGERS 1,000 ML IV SCH (10:37)
--- NOTE | 2022-02-15 12:12 | P.PNOBGVD ---
Subjective - Subjective Principal diagnosis: Normal Vaginal Delivery Interval history: The patient is doing well this morning and had no acute events overnight. She has no complaints this morning. She reports minimal lochia, passing flatus, voiding without difficulty, ambulating, and eating/drinking without nausea or vomiting. She is her infant without difficulty. She denies chest pain, shortness of breathing, fevers, or chills overnight. She denies pain or swelling in the legs. Patient reports: Reports appetite normal, Reports voiding normally, Reports pain well controlled, Reports ambulating normally [place]: doing well (in the nursery) Objective - Latest Vital Signs Latest vital signs: Vital Signs Temp Pulse Resp BP Pulse Ox 02/15/22 08:00 98.0 F 69 16 133/84 98 02/15/22 03:56 98.4 F 65 16 112/69 02/14/22 23:55 98.0 F 62 16 125/72 02/14/22 19:20 97.4 F L 76 16 127/78 98 02/14/22 18:50 75 16 140/84 02/14/22 18:20 66 16 139/83 02/14/22 18:05 67 16 139/79 02/14/22 17:50 64 16 137/78 02/14/22 17:35 69 16 129/85 02/14/22 17:20 97.1 F L 71 16 133/67 Intake and Output 02/14/22 02/15/22 02/15/22 22:59 06:59 14:59 Intake Total 184.567 Output Total 249 Balance -64.433 Intake: Intake, IV Titration 184.567 Amount Oxytocin 30 Units/500 ml 184.567 Ns 30 unit In Saline 1 500ml.bag @ Per Protocol IV .Q0M [facility] Rx#:[id number] Output: Estimated Blood Loss 100 Output, Quantitative 149 Blood Loss Other: # Voids 1 1 1 # Bowel Movements 1 - Exam Extremities: Present: normal Abdomen: Present: normal appearance, soft Uterus: Present: normal, firm - Labs Labs: Abnormal Lab Results - Last 24 Hours (Table) 02/15/22 Range/Units 06:23 RBC 3.48 L (3.80-5.40) m/uL Hgb 10.9 L (11.4-16.0) gm/dL Hct 30.6 L (34.0-46.0) % Assessment and Plan Assessment: 36 year old now day #1 s/p normal vaginal delivery after medical induction of labor for preeclamspia without severe features and IUGR 7%ile. Plan: 1. . The patient is meeting all milestones appropriately. 2. Preeclampsia without severe features. P:C on 02/11 was 1.7 and patient has had mild-range blood pressures throughout labor. Mostly normotensive . Will continue to watch, goal <150/90. 3. Viable male infant. In the nursery for thermoregulation difficulties and hypoglyecmia. Will stay until tomorrow. Dispo: Likely discharge home tomorrow if BPs remain <150/90.
[2022-02-16] MEDS: IBUPROFEN 600 MG TAB PO PRN ×2 (06:19→13:53)
[2022-02-16 09:11] VITALS: BP 128/73; PULSE 63; RESP 16; TEMP 98.2
[2022-02-16] MEDS: SENNOSIDES-DOCUSATE SODIUM 1 EACH TAB PO SCH (09:12)
--- NOTE | 2022-02-16 10:11 | P.PNOBGVD ---
Subjective - Subjective Principal diagnosis: Normal Vaginal Delivery Interval history: The patient is doing well this morning and had no acute events overnight. She has no complaints this morning. She reports minimal lochia, passing flatus, voiding without difficulty, ambulating, and eating/drinking without nausea or vomiting. She is her infant without difficulty. She denies chest pain, shortness of breathing, fevers, or chills overnight. She denies pain or swelling in the legs. Patient reports: Reports appetite normal, Reports voiding normally, Reports pain well controlled, Reports ambulating normally [place]: doing well Objective - Latest Vital Signs Latest vital signs: Vital Signs Temp Pulse Resp BP Pulse Ox 02/16/22 08:00 98.2 F 63 16 128/73 98 02/16/22 00:00 98.3 F 57 L 14 129/78 93 L 02/15/22 16:00 98.1 F 61 16 139/73 98 Intake and Output 02/15/22 02/16/22 02/16/22 22:59 06:59 14:59 Other: # Voids 2 2 1 - Exam Extremities: Present: normal Abdomen: Present: normal appearance, soft Uterus: Present: normal, firm Assessment and Plan Assessment: 36 year old now day #2 s/p normal vaginal delivery after medical induction of labor for preeclamspia without severe features and IUGR 7%ile. Plan: 1. . The patient is meeting all milestones appropriately. 2. Preeclampsia without severe features. P:C on 02/11 was 1.7 and patient has had mild-range blood pressures throughout labor. For the past 24 hours blood pressures have been normotensive. 3. Viable male . At the bedside getting phototherapy, will likely be discharged this evening. Dispo: Discharge home today. Follow up in 1 week in the office for blood pressure check.
--- NOTE | 2022-02-16 10:16 | P.DS ---
Providers Date of admission: 02/14/22 06:02 Expected date of discharge: 02/16/22 Attending physician: Delmy Barrios MD Primary care physician: Stated None Hospital Course: Ms. Huntley is a 36 year old at 37 weeks and 3 days with EDC of 03/04/2021 who presents to labor and delivery for medical induction of labor for preeclampsia without severe features and IUGR 4%ile with normal cord dopplers. is also complicated by advanced maternal age and obesity. Her past obstetric history is significant for 3 full term vaginal deliveries without complications and 1 vaginal delivery at 34 weeks secondary to PPROM. She had 1 SAB. Her last vaginal delivery was 13 years ago and her largest baby weighed 8 pounds and 14 ounces. Laboratory workup during shows blood type of A positive, antibody screen negative, Rubella immune, VDRL non-reactive, HBsAg negative, HIV negative, GBS unknown (still pending). Recent office urine dip yielded +4 of protein, which was followed by a urine protein to creatinine ration that was >1.7 She received a cooks catheter and oxytocin per protocol. AROM was undertaken for clear fluid. She progressed quickly to complete dilation. She pushed the head very effectively and quickly birthed a viable female infant. She met all milestones appropriately and blood pressures have been normotensive. She will be discharged home today on day 2. She will follow up in the office in 1 week for blood pressure check and then in 6 weeks for visit. Patient Condition at Discharge: Good Plan - Discharge Summary Discharge Rx Participant: No New Discharge Prescriptions: New Ibuprofen [Motrin] 600 mg PO Q6HR PRN #20 tab PRN Reason: Mild Pain (Scale 1 To 3) Acetaminophen Tab [Tylenol] 650 mg PO Q4HR PRN #20 tab PRN Reason: Mild Pain Or Fever >= 100.5 Continue Vit No.179/Iron/Folic [ Tablet] 1 capsule PO DAILY Discontinued Albuterol Sulfate [Proair Hfa] 2 puff INHALATION DAILY PRN PRN Reason: Shortness Of Breath Aspirin [Vazalore] 81 mg PO DAILY Discharge Medication List Vit No.179/Iron/Folic [ Tablet] 1 capsule PO DAILY 02/14/22 [History] Acetaminophen Tab [Tylenol] 650 mg PO Q4HR PRN #20 tab 02/16/22 [Rx] Ibuprofen [Motrin] 600 mg PO Q6HR PRN #20 tab 02/16/22 [Rx] Follow up Appointment(s)/Referral(s): Delmy Barrios MD [STAFF PHYSICIAN] - 1 Week (Blood pressure check) Patient Instructions/Handouts: Depression (DC), Perineal Care (DC), Caring for Your Baby (DC), Your Baby (DC), Expression, Collection and Storage of Breast Milk (DC), How to Increase Your Milk Supply (DC), How to Tell if Your Baby is Getting Enough Breast Milk (DC), Preeclampsia During (DC), Bleeding (DC), Vaginal Delivery (DC) Discharge Disposition: HOME SELF-CARE
== END 2022-02-16 14:30 | disposition home or self-care (01) | DRG 807 ==
LOC: 4FBP 06:02
PROVIDERS: ADMIT Obstetrics & Gynecology; ATTEND Obstetrics & Gynecology
PROC: 10E0XZZ Delivery of Products of Conception, External Approach (ICD-10-PCS; principal; 2022-02-14)
PROC: 10907ZC Drainage of Amniotic Fluid, Therapeutic from Products of Conception, Via Natural or Artificial Opening (ICD-10-PCS; 2022-02-14)
PROC: 0U7C7ZZ Dilation of Cervix, Via Natural or Artificial Opening (ICD-10-PCS; 2022-02-14)
PROC: 3E033VJ Introduction of Other Hormone into Peripheral Vein, Percutaneous Approach (ICD-10-PCS; 2022-02-14)
PROC: 4A0HXCZ Measurement of Products of Conception, Cardiac Rate, External Approach (ICD-10-PCS; 2022-02-14)
DX: O14.04 Mild to moderate pre-eclampsia, complicating childbirth (principal); Z37.0 Single live birth; F17.210 Nicotine dependence, cigarettes, uncomplicated; O36.5930 Maternal care for other known or suspected poor fetal growth, third trimester, not applicable or unspecified; E66.9 Obesity, unspecified; O99.214 Obesity complicating childbirth; O99.334 Smoking (tobacco) complicating childbirth; Z3A.37 37 weeks gestation of pregnancy; Z88.2 Allergy status to sulfonamides; Z87.59 Personal history of other complications of pregnancy, childbirth and the puerperium
CPT/HCPCS: 80053; 84550; 85025; 86850; 86900; 86901; 88307

== ENCOUNTER 2024-07-03 19:42 | Emergency (ER) | payer OTHER ==
--- NOTE | 2024-07-03 20:03 | ED ---
ENT HPI - General Chief complaint: Dental/Oral Stated complaint: Tooth pain Time Seen by Provider: 07/03/24 19:53 Source: patient, RN notes reviewed Mode of arrival: ambulatory Limitations: no limitations - History of Present Illness Initial comments: This is a 38-year-old female presenting for right lower tooth pain (11/08) x 6 days. Patient denies fever, chills, neck stiffness, sore throat, dyspnea, drooling, trismus. MD complaint: tooth pain, difficulty swallowing Onset/Timin -: days(s) - Related Data Home Medications Medication Instructions Recorded Confirmed Vit No.179/Iron/Folic 1 capsule PO DAILY 02/14/22 02/14/22 [ Tablet] Previous Rx's Medication Instructions Recorded Acetaminophen Tab [Tylenol] 650 mg PO Q4HR PRN #20 tab 02/16/22 Ibuprofen [Motrin] 600 mg PO Q6HR PRN #20 tab 02/16/22 clindamycin HCL 300 mg PO QID #28 cap 07/03/24 Allergies Allergy/AdvReac Type Severity Reaction Status Date / Time Sulfa (Sulfonamide Allergy Rash/Hives Verified 07/03/24 19:47 Antibiotics) Review of Systems ROS Statement: Those systems with pertinent positive or pertinent negative responses have been documented in the HPI. ROS Other: All systems not noted in ROS Statement are negative. Past Medical History Past Medical History: No Reported History History of Any Multi-Drug Resistant Organisms: None Reported Past Surgical History: No Surgical Hx Reported Past Anesthesia/Blood Transfusion Reactions: No Reported Reaction Past Psychological History: No Psychological Hx Reported Smoking Status: Current every day smoker Past Alcohol Use History: None Reported Past Drug Use History: None Reported General Exam Limitations: no limitations General appearance: alert, in no apparent distress Head exam: Present: atraumatic, other (Positive localized right mandibular edema with TTP and without overlying erythema) Eye exam: Present: normal appearance, PERRL, EOMI. Absent: scleral icterus, conjunctival injection, periorbital swelling ENT exam: Present: mucous membranes dry, other (Right lower molar is missing with necrotic roots noted. Positive diffuse right jaw/dental TTP with palpation of tongue depressor. Negative periapical abscess, gingival erythema, edema, purulent discharge). Absent: normal oropharynx (Tonsils 2+ without erythema or exudate. Negative uvular deviation, hot potato voice) Neck exam: Present: normal inspection. Absent: tenderness, meningismus, ly mphadenopathy Respiratory exam: Present: normal lung sounds bilaterally. Absent: respiratory distress, wheezes, rales, rhonchi, stridor Cardiovascular Exam: Present: regular rate, normal rhythm, normal heart sounds. Absent: systolic murmur, diastolic murmur, rubs, gallop, clicks GI/Abdominal exam: Present: soft, normal bowel sounds. Absent: distended, tenderness, guarding, rebound, rigid Extremities exam: Present: normal inspection, full ROM, normal capillary refill. Absent: tenderness, pedal edema, joint swelling, calf tenderness Back exam: Present: normal inspection Neurological exam: Present: alert, oriented X3, CN II-XII intact Psychiatric exam: Present: normal affect, normal mood Skin exam: Present: warm, dry, intact, normal color. Absent: rash Course Vital Signs 07/03/24 07/03/24 19:44 23:56 Temperature 97.5 F L 98.3 F Pulse Rate 62 54 L Respiratory 16 14 Rate Blood Pressure 139/90 106/69 O2 Sat by Pulse 99 99 Oximetry Medical Decision Making - Medical Decision Making Was pt. sent in by a medical professional or institution (, PA, REGISTERED VETERINARY TECHNICIAN, urgent care, hospital, or detention...) When possible be specific @ -[No] Did you speak to anyone other than the patient for history (EMS, parent, family, police, friend...)? What history was obtained from this source @ -[No] Did you review nursing and triage notes (agree or disagree)? Why? @ -[I reviewed and agree with nursing and triage notes] Were old charts reviewed (outside hosp., previous admission, EMS record, old EKG, old radiological studies, urgent care reports/EKG's, detention records)? Report findings @ -[No old charts were reviewed] Differential Diagnosis (chest pain, altered mental status, abdominal pain women, abdominal pain men, vaginal bleeding, weakness, fever, dyspnea, syncope, headache, dizziness, GI bleed, back pain, seizure, CVA, palpatations, mental health, musculoskeletal)? @ -Periapical abscess, gingivitis, ANUG, David's angina, peritonsillar abscess, retropharyngeal abscess, strep tonsillitis, dental necrosis, this is not an exhaustive list EKG interpreted by me (3pts min.). @ -Not done X-rays interpreted by me (1pt min.). @ -[None done] CT interpreted by me (1pt min.). @ -[None done] U/S interpreted by me (1pt. min.). @ -[None done] What testing was considered but not performed or refused? (CT, X-rays, U/S, labs)? Why? @ -[None] What meds were considered but not given or refused? Why? @ -[None] Did you discuss the management of the patient with other professionals (professionals i.e. DrSumit, PA, REGISTERED VETERINARY TECHNICIAN, lab, RT, psych nurse, social security assessor, police academy program coordinator, teacher, signals officer, case worker)? Give summary @ -[No] Was smoking cessation discussed for >3mins.? @ -[No] Was critical care preformed (if so, how long)? @ -[No] Were there social determinants of health that impacted care today? How? (Homelessness, low income, unemployed, alcoholism, drug addiction, tr ansportation, low edu. Level, literacy, decrease access to med. care, intermediate, rehab)? @ -[No] Was there de-escalation of care discussed even if they declined (Discuss DNR or withdrawal of care, Hospice)? DNR status @ -[No] What co-morbidities impacted this encounter? (DM, HTN, Smoking, COPD, CAD, Canc er, CVA, ARF, Chemo, Hep., AIDS, mental health diagnosis, sleep apnea, morbid obesity)? @ -[None] Was patient admitted / discharged? Hospital course, mention meds given and route, prescriptions, significant lab abnormalities, going to OR and other pertinent info. @ -[hospital course] Undiagnosed new problem with uncertain prognosis? @ -[No] Drug Therapy requiring intensive monitoring for toxicity (Heparin, Nitro, Insulin, Cardizem)? @ -[No] Were any procedures done? @ -[No] Diagnosis/symptom? @ -[default] Acute, or Chronic, or Acute on Chronic? @ -Acute Uncomplicated (without systemic symptoms) or Complicated (systemic symptoms)? @ -Uncomplicated Side effects of treatment? @ -[No] Exacerbation, Progression, or Severe Exacerbation? @ -[No] Poses a threat to life or bodily function? How? (Chest pain, [place], [place], pneumonia, PE, COPD, DKA, ARF, appy, cholecystitis, CVA, Diverticulitis, Homicidal, Suicidal, threat to staff... and all critical care pts) @ -[No] - Lab Data Result diagrams: 07/03/24 22:51 07/03/24 22:51 Lab Results 07/03/24 07/03/24 Range/Units 22:51 22:51 WBC 9.72 (4.50-10.00) 10*3/uL RBC 4.28 (4.10-5.20) 10*6/uL Hgb 12.9 (12.0-15.0) g/dL Hct 37.7 (37.2-46.3) % MCV 88.1 (80.0-97.0) fL MCH 30.1 (27.0-32.0) pg MCHC 34.2 (32.0-37.0) g/dL Plt Count 191 (140-440) 10*3/uL MPV 11.4 (9.5-12.2) fL Immature Gran % (Auto) 0.2 % Neutrophils % 59.7 % Lymphocytes % 31.4 % Monocytes % 5.6 % Eosinophils % 2.5 % Basophils % 0.6 % Immature Gran # 0.02 (0.00-0.04) 10*3/uL Neutrophils # 5.81 (1.80-7.70) 10*3/uL Lymphocytes # 3.05 (0.90-5.00) 10*3/uL Monocytes # 0.54 (0.20-1.00) 10*3/uL Eosinophils # 0.24 (0.04-0.35) 10*3/uL Basophils # 0.06 (0.00-0.10) 10*3/uL Sodium 136 L (137-145) mmol/L Potassium 4.3 (3.5-5.1) mmol/L Chloride 109 H (98-107) mmol/L Carbon Dioxide 20 L (22-30) mmol/L Anion Gap 7 mmol/L BUN 14 (7-17) mg/dL Creatinine 0.66 (0.52-1.04) mg/dL Est GFR (CKD-EPI)AfAm >90 (>60 ml/min/1.73 sqM) Est GFR (CKD-EPI)NonAf >90 (>60 ml/min/1.73 sqM) Glucose 92 (74-99) mg/dL Calcium 9.6 (8.4-10.2) mg/dL Total Bilirubin 0.6 (0.2-1.3) mg/dL AST 30 (14-36) U/L ALT 34 (4-34) U/L Alkaline Phosphatase 48 (38-126) U/L Total Protein 6.7 (6.3-8.2) g/dL Albumin 4.0 (3.5-5.0) g/dL Disposition Clinical Impression: Dental abscess, Vallecular mass Disposition: HOME SELF-CARE Condition: Good Instructions (If sedation given, give patient instructions): Dental Abscess (ED) Additional Instructions: Alternate Tylenol/Motrin every 4 hours for pain. Continue/finish previous antibiotic prescribed. Swish with warm salt water as needed. Follow-up with dental surgeon for definitive treatment. Prescriptions: clindamycin HCL 300 mg PO QID #28 cap Is patient prescribed a controlled substance at d/c from ED?: No Referrals: None,Stated [Primary Care Provider] - 1-2 days Kike Lopez DDS [STAFF PHYSICIAN] - 1-2 days Time of Disposition: 01:06
[2024-07-03] MEDS: ACETAMINOPHEN TAB 500 MG TAB PO STA (20:54)
[2024-07-03] MEDS: BUPIVACAIN-EPI 0.25%-1:200,000 30 ML VIAL SQ STA (20:54)
[2024-07-03] MEDS: LIDOCAINE VISCOUS 2% 15 ML CUP MUCOUS MEM ONE (20:55)
[2024-07-03] MEDS: KETOROLAC 15 MG/ML 1 ML VIAL IM STA (20:56)
[2024-07-03] MEDS: CLINDAMYCIN 150 MG CAP PO STA (21:51)
--- NOTE | 2024-07-03 22:29 | XR ---
EXAMINATION TYPE: XR soft tissue neck DATE OF EXAM: 07/03/2024 8:44 PM COMPARISON: None. CLINICAL INDICATION: Female, 38 years old with history of Throat swelling sensation, pain TECHNIQUE: 2 view(s) obtained. FINDINGS: Prevertebral space is normal. There is soft tissue in the vallecula. Additional workup with CT is rec ommended. Neoplasm should be considered Patient is partially edentulous. No bone erosion is identified IMPRESSION: 1. Soft tissue filling the region of the vallecula. Additional workup or neoplasm is recommended. Co nsider CT soft tissue neck with contrast [facility], Workstation: [facility], 07/03/2024 10:26 PM
[2024-07-03 23:15] LABS: Basophils # (A) 0.06 10*3/uL (0.00-0.10); Basophils % (A) 0.6 %; Eosinophils # (A) 0.24 10*3/uL (0.04-0.35); Eosinophils % (A) 2.5 %; HCT 37.7 % (37.2-46.3); HGB 12.9 g/dL (12.0-15.0); Lymphocytes # (A) 3.05 10*3/uL (0.90-5.00); Lymphocytes % (A) 31.4 %; MCH 30.1 pg (27.0-32.0); MCHC 34.2 g/dL (32.0-37.0); MCV 88.1 fL (80.0-97.0); Mean Platelet Volume 11.4 fL (9.5-12.2); Monocytes # (A) 0.54 10*3/uL (0.20-1.00); Monocytes % (A) 5.6 %; Neutrophils # (A) 5.81 10*3/uL (1.80-7.70); Neutrophils % (A) 59.7 %; Platelet Count 191 10*3/uL (140-440); RBC 4.28 10*6/uL (4.10-5.20); RDW 12.5 % (11.5-14.5); WBC 9.72 10*3/uL (4.50-10.00)
[2024-07-03 23:20] LABS: ALT 34 U/L (4-34); African American GFR (CKD) >90 (>60 ml/min/1.73 sqM); Anion Gap 7 mmol/L; Blood Urea Nitrogen 14 mg/dL (7-17); Calcium 9.6 mg/dL (8.4-10.2); Carbon Dioxide 20 mmol/L (22-30); Chloride 109 mmol/L (98-107); Glucose 92 mg/dL (74-99); Non-African American GFR(CKD) >90 (>60 ml/min/1.73 sqM); Sodium 136 mmol/L (137-145); Total Bilirubin 0.6 mg/dL (0.2-1.3); Total Protein 6.7 g/dL (6.3-8.2)
[2024-07-03 23:46] LABS: AST 30 U/L (14-36); Alkaline Phosphatase 48 U/L (38-126); Potassium 4.3 mmol/L (3.5-5.1)
--- NOTE | 2024-07-04 00:57 | CT ---
EXAMINATION TYPE: CT soft tissue neck w con DATE OF EXAM: 07/03/2024 11:03 PM COMPARISON: None. CLINICAL INDICATION: Female, 38 years old with history of Vallecular mass, Lower right dental pain si nce last Wednesday. Pt was seen at urgent care and treated with antibiotics and Motrin but the pain i s horrible. TECHNIQUE: Axial images at 3 mm thick sections. Reconstructed images in the coronal plane and sagitt al plane are reviewed. Contrast used:100 mL of with IV Contrast, (none if empty) Oral contrast used: (none if empty) CT DLP: 321.8 mGycm, Automated exposure control for dose reduction was used. FINDINGS: Limited CT sections are obtained the lung apices. The lung apices appear clear. CT neck: The torus tubarius and fossa of Rosenmuller are normal. Security Assistant spaces are normal. Visu alized Paranasal sinuses and mastoid air cells are clear. Parotid glands appear normal and symmetrical. Submandibular glands, are normal. Parapharyngeal spac es are normal. No suspicious adenopathy is evident. No abnormal soft tissue collections suggest absc ess are identified. There is some fullness within the vallecula better visualized on the sagittal plane images. There is a history of a prior vallecular mass. Direct visualization is recommended Vocal cord level appear symmetrical. Thyroid as visualized is normal. Osseous structures are normal. No mandibular or maxillary erosion is identified. No acute fractures a re evident. IMPRESSION: 1. There appears to be fullness to the vallecula best visualized on the sagittal plane images. Direct visualization recommended. [facility], Workstation: [id number], 07/04/2024 12:55 AM
[2024-07-04 01:14] VITALS: BP 133/92; PULSE 65; RESP 16; TEMP 98.4
== END 2024-07-04 01:12 | disposition home or self-care (01) ==
LOC: EC 19:42
DX: K04.7 Periapical abscess without sinus (principal); F17.200 Nicotine dependence, unspecified, uncomplicated; Z88.2 Allergy status to sulfonamides
CPT/HCPCS: 36415; 80053; 85025; 70360; 70491; 99284; 96372; J1885; Q9967